=== PATIENT | male | born 2005 | race Caucasian/White ===

== ENCOUNTER 2024-01-24 20:57 | Outpatient (CLI) | payer OTHER ==
--- NOTE | 2024-01-24 23:04 | Ultrasound Report ---
PROCEDURE: Abdomen Limited INDICATIONS: HEPATOMEGALY TECHNIQUE: Real-time focused scanning was performed of the abdomen, with image documentation. COMPARISONS: None. FINDINGS: Liver: Liver is normal in size. Heterogeneously echogenic liver parenchyma is seen. No discrete hepa tic lesion. Gallbladder: No gallstones, sludge, wall thickening or pericholecystic edema. Possible tiny less than 5 mm polyp seen in nondependent portion of gallbladder wall. Biliary ducts: Intrahepatic bile ducts are non-dilated. Extrahepatic bile duct caliber measures 3.3 mm. Normal is 6-7 mm or less in diameter, or 10 mm or less post-cholecystectomy. Pancreas: Visualized portions of the pancreas are sonographically normal. Right kidney: Normal in size and echotexture. Right kidney measures 11.0 cm long. No hydronephrosis or nephrolithiasis. No solid masses. No complex renal cystic lesions which require follow-up. IVC: Intrahepatic inferior vena cava is patent. Miscellaneous: No free abdominal fluid. IMPRESSION: 1. Hepatic steatosis. No discrete hepatic lesion. 2. Tiny polyp within gallbladder lumen. No gallstones. No sonographic evidence of acute cholecystitis . 3. No biliary ductal dilatation. 4. Normal appearing right kidney and visualized portion of pancreas. Reviewed by: Alverto Sultana MD on 01/24/2024 11:03 PM PDT Approved by: Alverto Sultana MD on 01/24/2024 11:03 PM PDT Station ID: [id number]
== END 2024-01-24 20:58 | disposition home or self-care (01) ==
LOC: DI 20:57
PROVIDERS: ATTEND Internal Medicine
DX: R16.0 Hepatomegaly, not elsewhere classified (principal); K76.0 Fatty (change of) liver, not elsewhere classified; K82.4 Cholesterolosis of gallbladder